=== PATIENT | female | born 1955 | race Caucasian/White ===

== ENCOUNTER 2017-12-07 11:27 | Day surgery (SDC) | payer OTHER ==
[2017-12-07] MEDS: NS 1,000 ML IV (13:05)
[2017-12-07] MEDS ORDERED: LIDOCAINE 2% MDV 20 ML VIAL As Ordered (13:17)
[2017-12-07] MEDS ORDERED: PROPOFOL 200 MG/20 ML VIAL As Ordered (13:17)
== END 2017-12-07 14:20 | disposition home or self-care (01) ==
LOC: M OPP 14:20
DX: R10.816 Epigastric abdominal tenderness (principal); K22.8 Other specified diseases of esophagus; I10 Essential (primary) hypertension; E03.9 Hypothyroidism, unspecified; L40.50 Arthropathic psoriasis, unspecified; K21.9 Gastro-esophageal reflux disease without esophagitis; Z85.3 Personal history of malignant neoplasm of breast; Z92.21 Personal history of antineoplastic chemotherapy; Z90.12 Acquired absence of left breast and nipple; F41.9 Anxiety disorder, unspecified; Z88.2 Allergy status to sulfonamides; Z79.82 Long term (current) use of aspirin; Z79.899 Other long term (current) drug therapy; Z87.891 Personal history of nicotine dependence; Z80.42 Family history of malignant neoplasm of prostate
CPT/HCPCS: 43239